=== PATIENT | male | born 1940 | race Caucasian/White ===

== ENCOUNTER 2024-11-22 12:43 | Outpatient (CLI) | payer MEDICARE, BC, SELFPAY ==
--- NOTE | 2024-11-22 13:00 | CRLHL7_ITS ---
For Patients: As a result of the Century Cures Act, medical imaging exams and procedure reports are released immediately into your electronic medical record. You may view this report before your referring provider. If you have questions, please contact your health care provider. INDICATION: Hydrocephalus TECHNIQUE: Noncontrast Sagittal T1,Axial FSE T2, Flair, DWI images submitted. Compared to prior study from October 21, 2024 FINDINGS: Moderate cerebral atrophy. There is mild prominence of the lateral and 3rd ventricles with evidence of hyperdynamic flow through the cerebral aqueduct. The 4th ventricle appears within normal limits. The sulci and gyri are of normal size, shape and contour for age and degree of atrophy. Midline structures are centrally located. No convincing evidence of suspicious intra- or extra-axial fluid collections. [id number] patchy regions of increased T2 signal within the periventricular and subcortical white matter of both cerebral hemispheres. No regions of restricted diffusion. IMPRESSION: 1. No radiographic evidence of acute intracranial abnormalities. 2. Moderate cerebral atrophy with mild prominence of the lateral and 3rd ventricles. 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 3. [id number] supratentorial white matter changes that are non-specific, but statistically most likely related to chronic small vessel ischemic disease. Dictated by Pipe Norwood MD @ 11/22/2024 5:21:48 PM (Electronically Signed)
--- OUTSIDE RECORDS SUMMARY | 2024-11-23 00:52 | XMS_ITS | Encounter Summary ---
Author Organization [facility] Address [address] [place] [address] Care Team Providers Care Launchman Name Role Phone Unavailable Primary Care Provider Unavailabl e Reason for Visit * Reason Comments Med Refill Encounter Details Date Type Department Care Team (Late st Contact Info) Description 11/14/2024 Refill [facility] [id number] [place] [id number] Mikayla Will, P.A.-C. [address] [place] [phone] Med Refill Social History Tobacco Use Types Packs/Day Years Used Date Smoking Tobacco: Unknown Sex and Gender Information Value Date Recorded Sex Assigned at Not on file Legal Sex Male 12:07 PM CDT Gender Identity Not on file Sexual Orientation Not on file documented as of this encounter Plan of Treatment Not on file documented as of this encounter Visit Diagnoses Not on filedocumented in this encounter
--- OUTSIDE RECORDS SUMMARY | 2024-11-23 00:52 | XMS_ITS | Clinical Summary ---
Author Organization [facility] Address [address] [place] [address] Care Team Providers Care Industrial Engineering Intern Name Role Phone César Herring MD Primary Care Provider Unavailabl e Source Comments You are receiving this document as you are listed as the primary care provider,follow-up provider, or the patient has been referred to you for consultation.This is in compliance with the Medicare and[facility] EHR Incentive Program,which states Providers who transition their patient to another setting of careor provider of care or refers their patient to another provider of care shouldprovide summary care record for each transition of care or referral. Ascenz Allergies Active Allergy Reactions Criticality Noted Date Comments Other 12/17/2006 PN: LW Other1: -NKA LW Other2: -NKA Review Contrast Media 12/17/2006 PN: LW CM1: >>> NO CONTRAST ADVERSE REACTION <<< Reaction : Review Food Intolerance 12/17/2006 PN: LW FI1: NKA LW FI2: NKA Medications aspirin 81 MG tablet Take 1 tablet by mouth daily (every 24 hours). LW Addl Instr:Resume after Lovenox complete per preop call- pt. takes baby ASA every other day 7 Active fexofenadine (AKA TRISH) 180 MG tablet Take 1 tablet by mouth daily (every 24 hours). LW Addl Instr:per preop & preop phone call. Indicated for: Allergies 90 3 7 Active DRUG NOT IN COMPUTER LW Comment:zinc 15mg tab daily prn LW Addl Instr:per preop & preop phone call. 7 Active Multiple Vitamins-Minera ls (MULTIVITAMIN OR) Take 1 tablet by mouth daily (every 24 hours). LW Addl Instr:per preop & preop phone call. 100 13 7 Active unknown medication Indications: PN: 7 Active ATENolol (AKA TENORMIN) 50 MG tablet Take 1 tablet by mouth daily (every 24 hours). LW Addl Instr:per preop & preop phone call. Indicated for: High Blood Pressure 90 3 7 Active Active Problems No known active problems Social History Tobacco Use Types Packs/Day Years Used Date Smoking Tobacco: Never Smokeless Tobacco: Never Sex and Gender Information Value Date Recorded Sex Assigned at Not on file Legal Sex Male 11:21 PM CDT Gender Identity Not on file Sexual Orientation Not on file Last Filed Vital Signs Vital Sign Reading Time Taken Comments Blood Pressure 125/76 12/19/2006 7:00 AM CDT C: Dynamap Pulse 80 12/19/2006 9:12 AM CDT Temperature 36.6 C (97.9 F) 12/19/2006 7:00 AM CDT ORAL C: 97.9 F Respiratory Rate 16 12/19/2006 9:12 AM CDT Oxygen Saturation 95% 12/19/2006 9:1 2 AM CDT Inhaled Oxygen Concentration - - Weight 124.7 kg (275 lb) 08/24/2020 9:2 8 AM CDT Height 175.3 cm (5' 9) 08/24/2020 9:28 AM CDT Body Mass Index 40.61 08/24/2020 9:28 AM CDT Plan of Treatment Health Maintenance Due Date Last Done Comments Medicare Annual Wellness Visit 1940 Zoster/Shingles Vaccine (1 of 2) 1992 DTaP/Tdap/Td Vaccine (1 - Tdap) 04/18/2009 04/17/2009 RSV Vaccine (1 - 1-dose 75+ series) 2017 COVID-19 Vaccine (3 - season) 2024 08/11/2020, 07/21/2020 Influenza Vaccine (Season Ended) 2025 03/08/2020, 04/02/2019, 04/03/2018, Additional history exists Pneumococcal Vaccine 50+ Yrs Completed 11/10/2014, 05/05/2011 HepA Vaccine Aged Out No longer eligi ble based on patient's age to complete this topic HepB Vaccine Aged Out No longer eligi ble based on patient's age to complete this topic Hib Vaccine Aged Out No longer eligi ble based on patient's age to complete this topic IPV (Polio) Vaccine Aged Out No longe r eligible based on patient's age to complete this topic MCV4 Vaccine Aged Out No longer eligi ble based on patient's age to complete this topic Meningococcal B Vaccine Aged Out No l onger eligible based on patient's age to complete this topic Insurance MEDICARE MANAGED CARE [facility] Care Teams Industrial Engineering Intern Relationship Specialty Start Date End Date César Herring MD [address] [place] [address] [place] [id number] PCP - General 09/03/10
--- OUTSIDE RECORDS SUMMARY | 2024-11-23 00:52 | XMS_ITS | Clinical Summary ---
Author Organization [facility] Address [address] [place] [id number] Care Team Providers Care Cellulose Insulation Helper Name Role Phone Amos Tineo MD Primary Care Provider Allergies Active Allergy Reactions Criticality Noted Date Comments Bupropion Other - Describe In Comment Field Medications MISCELLANEOUS MEDICAL SUPPLY (GRADUATED COMPRESSION STOCKINGS)Indica tions:Venous stasis ulcer, right For personal use. Length: calf Strength: 20-30 mmHg Circumference in cm: please measure. 1 Packet 0 02/14/20 16 Active WalkerIndication s:Generalized arthritis Rolling Walker for home use. 4-wheeled walker. 1 Device 05/05/20 17 Active aspirin (ECOTRIN) 81 mg enteric coated tabletIndication s:myocardial infarction prevention,preve ntion of transient ischemic attack Take 81 mg by mouth once daily with a meal. Active amoxicillin (AMOXIL) 500 mg capsule TAKE 4 CAPSULES BY MOUTH 1 HOUR BEFORE APPOINTMENT 04/14/20 22 Active acetaminophen (TYLENOL EXTRA STRGTH) 500 mg tabletIndication s:pain Take 500-1,000 mg by mouth every 6 hours if needed. Max acetaminophen dose: 4000mg in 24 hrs. Active finasteride (PROSCAR) 5 mg tabletIndication s:benign prostatic hyperplasia with lower urinary tract sx Take 1 Tablet (5 mg) by mouth once daily in the morning. 90 Tablet 3 05/11/20 24 Active magnesium oxide 400 mg magnesium capsuleIndicatio ns:hypomagnesemi a Take 400 mg by mouth once daily. Take with meal May decrease to once a day if not tolerating 90 Capsule 05/11/20 24 Active fluticasone (50 mcg per actuation) nasal solution (FLONASE)Indicat ions:allergic conjunctivitis,a llergic rhinitis Inhale 2 Sprays in both nostrils once daily. 32 g 05/11/20 24 Active pantoprazole (PROTONIX) 40 mg delayed-release tabletIndication s:gastroesophage al reflux disease Take 1 Tablet (40 mg) by mouth once daily. 90 Tablet 05/11/20 24 Active pravastatin (PRAVACHOL) 80 mg tabletIndication s:hyperlipidemia Take 1 Tablet (80 mg) by mouth at bedtime. 90 Tablet 05/11/20 24 Active tamsulosin 0.4 mg capsuleIndicatio ns:benign prostatic hyperplasia with lower urinary tract sx Take 1 Capsule (0.4 mg) by mouth once daily after a meal. 90 Capsule 3 05/11/20 24 Active gabapentin 300 mg capsuleIndicatio ns:neuropathic pain Take 1 capsule every morning and at noon and 2 capsules in the evening. Active amLODIPine 10 mg tabletIndication s:Essential hypertension Take 1 Tablet (10 mg) by mouth once daily. 30 Tablet 08/24/19 25 Active BIPAPIndications :Obstructive sleep apnea Replacement bPAP machine for home use at pressure: I: 14 E: 10 cmw , Heated humidifier x 1 q 5 yr, Humidifier chamber x 1 q 6 mo, Full face mask x1 q 3mos, with cushion x 2 q mo, standard tubing x 1 q 3 mo, Headgear x 1 q 6 mo, Filters: Disposable x 2 q mo non-disposable filters x1 q 6mo, Length of Need: 99 months, Frequency of use: Daily 1 Each 10/20/19 25 Active allopurinoL 300 mg tabletIndication s:prevention of acute gout attack Take 0.5 Tablets (150 mg) by mouth two times daily. 90 Tablet 1 11/17/19 25 Active allopurinoL (ZYLOPRIM) 300 mg tabletIndication s:prevention of acute gout attack Take 0.5 Tablets (150 mg) by mouth two times daily. 90 Tablet 05/11/20 24 025 Discontin ued(Reord er (E-cancel not sent)) Active Problems Problem Noted Date Diagnosed Date Deficit in activities of daily living (ADL) 07/30 Hydrocephalus, unspecified type 06/03/2024 Stage 3b chronic kidney disease 06/03/2024 Sensorineural hearing loss, bilateral 05/16/2024 COVID-19 05/27/2023 Influenza A 05/27/2023 Symptomatic urinary tract infection 05/27/2023 Obesity, morbid 09/04/2021 Depression, recurrent 08/02/2021 Obstructive sleep apnea 09/27/2019 Carpal tunnel syndrome of right wrist 08/09/2019 Numbness and tingling in right hand 08/09/2019 BPH with urinary obstruction 08/25/2017 Weakness 08/24/2017 Fall, accidental 08/24/2017 Bladder infection 08/24/2017 Pain medication agreement 04/12/2014 Overview (04/12/2014): Knee OSTEOARTHRITIS; taking at night, 15 per month. 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 Stent placed. Recommend at least 1 year of plavix; 2+ years if tolerated. Environmental allergies 05/05/2011 Generalized arthritis 11/30/2006 Other and unspecified hyperlipidemia 09/22/2006 Overview (05/05/2011): Last lipids in chart from 06/2010 LDL 80, HDL 38, TG 304. Takes pravachol 40 mg daily Hypertension CKD (chronic kidney disease) stage 3, GFR 30-59 ml/min Resolved Problems Problem Noted Date Diagnosed Date Resolved Date Choledocholithiasis 07/03/2014 07/03/19 15 Cholecystitis, acute with cholelithiasis 07/03/2014 08/24/2017 Chest pain, unspecified 05/05/201107/2014 Encounters Date Type Department Care Team Description 11/21/2024 Telephone [facility] [address] [place] [address] Amos Tineo MD FYI (Recent fall) 11/14/2024 Refill [facility] [address] [place] [address] Amos Tineo MD Refill Request (Allopurinol) 11/02/2024 Telephone [facility] [address] [place] [address] Amos Tineo MD Form 10/21/2024 8:48 AM CDT - 10/21/2024 11:59 PM CDT Hospital Encounter [facility] [address] [place] [address] Amos Tineo MD Acute nonintractable headache, unspecified headache type 10/21/2024 Travel 10/20/2024 Travel 10/19/2024 10:45 AM CDT Telemedicine [facility] [address] [place] [phone] Cat Cartwright, I&C TECH Telehealth 10/19/[address] [address] Amos Tineo MD Lab (Verbal) 10/14/2024 Travel 10/11/2024 3:10 PM CDT Office Visit [address] [address] Amos Tineo MD Concerns 10/11/2024 Travel 10/09/2024 Travel 10/07/[address] [address] Amos Tineo MD Form (physician order) 10/07/[address] [address] Amos Tineo MD Form (home health certification and plan of care) 09/30/[address] [address] Amos Tineo MD Home Care (following home care ) 09/20/2024 Lab Requisition [facility] [address] [place] [address] Tanja Mckeon MD from Last 3 Months Immunizations Immunization Administration Dates Next Due Amb Influenza, ccIIV3 (Age > =18 Years) Preserve Free (Flu Clinic Only) 03/10/2024,03/26/2023 COVID-19 VACCINE SPIKEVAX (M ODERNA 50MCG/0.5ML) 12YO+ PFS 05/11/2024 COVID-19 vaccine (Pfizer-Bio NTech 30mcg/0.3mL) PF, MDV 04/06/2021,08/11/2020,07/21/2020 Influenza, High-dose Inactivated 024,04/02/2019,04/03/2018,03/21,04/09/2016,03/26/2015,02/21/2014 Influenza, High-dose Quadriv alent Inactivated 03/16/2023,03/14/2021,03/08/2020 Influenza, IIV3 (Age 6-35 mos) 03/15/2013,2010 Influenza, IIV3 (Age >=3 years) 03/15/20 13,03/16/2012,03/06/2011,03/12,03/01/2009,04/13/2008,03/31/2007 Influenza, Inactivated AIIV4 (Age 65+ Years) Preserv Free 03/12/2022 Pneumococcal Conj 20-valent (Prevnar 20) 03/24/2023 Pneumococcal Poly,23-Valent (Pneumovax) 05/05/2011 Pneumococcal conj 13-Valent (Prevnar 13) 11/10/2014 RSV, Recombinant ADJ Reconst ituted (Arexvy 120MCG/0.5mL) 03/31/2023 Td, Preservative Free (age >= 7 Years) 9 Tdap 03/31/2023 Family History Medical History Relation Name Comments Hyperlipidemia Mother Hypertension Mother Hypertension Sister 3 Relation Name Status Comments Daughter Negrita Alive cat allergy Father (Age 66) Car accide nt Mother (Age 87) Alzheimers , colilits Sister 1 Alive Sister 2 Alive hypertension, d epression Sister 3 Son Zachariah Alive hyperlipidemia Social History Tobacco Use Types Packs/Day Years Used Date Smoking Tobacco: Never Passive Smoke Exposure: Past Smokeless Tobacco: Never Tobacco Cessation:Counseling Given: Not Answered Alcohol Use Standard Drinks/Week Comments Not Currently 0 (1 standard drink = 0.6 oz pur e alcohol) PHQ-2 Answer Date Recorded PHQ-2 TOTAL SCORE 0 05/11/2024 Social Connections Answer Date Recorded Do you often feel lonely or isolated from those around you? 0 08/16/2024 Financial Resource Strain Answer Date R ecorded Difficulty of Paying Living Expenses 3 06/02/2024 Difficulty of Paying Living Expenses Not on file 06/02/2024 Food Insecurity Answer Date Recorded Do you worry your food will run out before you are able to buy more? 1 08/16/2024 Transportation Needs Answer Date Record ed Does lack of transportation keep you from medica l appointments? 1 08/16/2024 Does lack of transportation keep you from work, meetings or getting things that you need? 1 08/16/2024 Housing Stability Answer Date Recorded What is your housing situation today? 1 08/16/2024 Interpersonal Safety Answer Date Record ed Are you being hit, kicked, p ushed or yelled at (see row info)? No 08/16/2024 Interpersonal Safety Abuse 12 - 18 Not on file 08/16/2024 Interpersonal Safety Ambulatory Vulnerability No t on file 08/16/2024 Utilities Answer Date Recorded Do you have trouble paying f or utilities (for example, heat, electricity, water, phone)? 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 Gender Identity Not on file Sexual Orientation Not on file Occupation Industry Job Start Date Job End Date Retired Not on file Not on file Not on file Obstetrics History Last Filed Vital Signs Vital Sign Reading Time Taken Comments Blood Pressure 122/60 10/11/2024 3:18 PM CDT Pulse 74 10/11/2024 3:18 PM CDT Temperature 37.5 C (99.5 F) 08/22/2024 7:07 AM CDT Respiratory Rate 14 08/22/2024 7:07 AM CDT Oxygen Saturation 94% 10/11/2024 3:18 PM CDT Inhaled Oxygen Concentration - - Weight 114.8 kg (253 lb) 10/11/2024 3:18 PM CDT Height 175.3 cm (5' 9) 10/11/2024 3:18 PM CDT Body Mass Index 37.36 10/11/2024 3:18 PM CDT Plan of Treatment Upcoming Encounters Date Type Department Care Team (Late st Contact Info) Description 01/03/2025 1:00 PM CDT Office Visit [facility] [address] [place] [phone] Prince Winston [facility] [address] [facility] [address] [place] [address] 01/31/2025 10:15 AM CDT Ancillary Procedure [facility] [address] [place] [address] Health Maintenance Due Date Last Done Comments Zoster (shingles) series for age 50+ (1 of 2) 1992 COVID-19 vaccine series ( season) 2024 05/11/2024, 03/24/2023, 02/11/2022, Additional history exists Depression screening for age 12+ 05/11/2025 05/11/2024, 05/08/2023, 05/06/2022, Additional history exists Medicare Wellness for age 65+ 05/12/2025 05/11/2024, 05/08/2023, 05/06/2022, Additional history exists BMI (ht and wt on same day) for age 18+ 10/11/2025 10/11/2024, 08/08/2024, 06/03/2024, Additional history exists Tetanus booster 03/31/2033 03/31/2023, 04/17/2009 Pneumococcal series for age 50+ Completed 03/24/2023, 11/10/2014, 05/05/2011 RSV vaccine for adults or Completed 03/31/2023 Tdap Completed 03/31/2023 Influenza Vaccine Completed 03/10/2024, , 03/26/2023, Additional history exists Hepatitis B series for 19+ Aged Out N o longer eligible based on patient's age to complete this topic Goals Goal Patient Goal Type Associated Problems Recent Progress Patient-Stated? Author BLOOD PRESSURE - Maintains BP less than 140/90 Blood Pressure No Amos Tineo MD Medical Devices Implanted Type Area License Examiner Device Identifier Shelf Expiration Date Model / Serial / Lot [id number] - [id number] Implanted:Qty: 1 on 03/07/2014 by Nirmal Garnett MD at [facility] Total Joint Left: Knee 11/18/2018 [id number] Cement Simplex P#[id number] * - [id number] Implanted:Qty: 2 on 03/07/2014 by Nirmal Garnett MD at [facility] Left: Knee D-[employer] 12/18/2014 [id number] / / [id number] - [id number] Implanted:Qty: 1 on 03/07/2014 by Nirmal Garnett MD at [facility] Left: Knee DEPUY 09/29/2017 [id number] Description:Patella Medializ ed Dome [id number] - [id number] Implanted:Qty: 1 on 03/07/2014 by Nirmal Garnett MD at [facility] Left: Knee DEPUY 10/31/2023 [id number] Description:Femoral Posterio r Stabilized [id number] - [id number] Implanted:Qty: 1 on 03/07/2014 by Nirmal Garnett MD at [facility] Left: Knee DEPUY 01/30/2023 [id number] Description:Tibial Base Fixe d Bearing Procedures Procedure Name Priority Date/Time Associated Diagnosis Comments CT HEAD BRAIN WO Routine 10/21/2024 9:06 AM CDT Acute nonintractable headache, unspecified headache type BASIC METABOLIC PANEL Routine 09/21/2024 6:20 AM CDT Essential (primary) hypertension from Last 3 Months Results * CT HEAD BRAIN WO (10/21/2024 9:06 AM CDT) Anatomical Region Laterality Modality HEAD, BRAIN Computed Tomogra phy 10/21/2024 1:38 PM CDT Impressions 10/21/2024 1:38 PM CDT No acute intracranial abnormality. No significant changes compared to prior study dated 08/11/2024. Please note that all CT scans at this facility use dose modulation, iterative reconstruction, and/or weight-based dosing when appropriate to reduce radiation dose to as low as reasonably achievable. Dictated by Ankit Long MD @ 10/21/2024 1:38:51 PM (Electronically Signed) Narrative 10/21/2024 1:38 PM CDT For Patients: As a result of the Cures Act, medical imaging exams and procedure reports are released immediately into your electronic medical record. You may view this report before your referring provider. If you have questions, please contact your health care provider. INDICATION: Acute nonintractable headache, unspecified headache type; headache, neuro deficit TECHNIQUE: CT of the head without contrast. Coronal and sagittal reformats. Bone and soft tissue algorithms. COMPARISON: CT 08/11/2024 FINDINGS: No acute intracranial hemorrhage or extra-axial collection. No evidence of acute cortical infarction. No mass effect or midline shift. Moderate generalized parenchymal volume loss. Moderate regions of decreased attenuation within the periventricular and subcortical white matter of both cerebral hemispheres most likely reflect chronic microvascular ischemic disease and age related change in this patient. Vascular calcifications within the carotid siphons. Orbital contents are normal. No calvarial fractures. No lytic or sclerotic osseous lesions within the calvarium or skull base. Scalp and other imaged soft tissue structures are normal. Mastoid air cells are clear. Right TMJ degenerative changes. Procedure Note Ankit Long MD - 10/21/2024 For Patients: As a result of the Cures Act, medical imagingexams and procedure reports are released immediately into your electronicmedical record. You may view this report before your referring provider.If you have questions, please contact your health care provider. INDICATION: Acute nonintractable headache, unspecified headache type; headache, neurodeficit TECHNIQUE: CT of the head without contrast. Coronal and sagittal reformats. Bone andsoft tissue algorithms. COMPARISON: CT 08/11/2024 FINDINGS: No acute intracranial hemorrhage or extra-axial collection. No evidence ofacute cortical infarction. No mass effect or midline shift. Moderategeneralized parenchymal volume loss. Moderate regions of decreasedattenuation within the periventricular and subcortical white matter ofboth cerebral hemispheres most likely reflect chronic microvascularischemic disease and age related change in this patient. Vascularcalcifications within the carotid siphons. Orbital contents are normal.No calvarial fractures. No lytic or sclerotic osseous lesions within thecalvarium or skull base. Scalp and other imaged soft tissue structures arenormal. Mastoid air cells are clear. Right TMJ degenerative changes. IMPRESSION: No acute intracranial abnormality. No significant changes compared p & s surgery center study dated 08/11/2024. Please note that all CT scans at this facility use dose modulation,iterative reconstruction, and/or weight-based dosing when appropriate toreduce radiation dose to as low as reasonably achievable. Dictated by Ankit Long MD @ 10/21/2024 1:38:51 PM (Electronically Signed) us Amos Tineo MD CT Final Resul t * (ABNORMAL) BASIC METABOLIC PANEL (09/21/2024 6:20 AM CDT) SODIUM 142 136 - 145 mmol/L 09/21/2024 6:57 AM [facility] POTASSIUM 4.7 3.5 - 5.1 mmol/L 09/21/2024 6:57 AM [facility] CHLORIDE 106 98 - 107 mmol/L 09/21/2024 6:57 AM [facility] CO2,TOTAL 26 22 - 29 mmol/L 09/21/2024 6:57 AM [facility] ANION GAP 10 5 - 18 09/21/2024 6:57 AM [facility] GLUCOSE 90 70 - 99 mg/dL 09/21/2024 6:57 AM [facility] CALCIUM 9.3 8.8 - 10.4 mg/dL 09/21/2024 6:57 AM [facility] Comment: Reference ranges for this test were updated on 04/05/2024 to reflect our healthy population more accurately. Reference range changes are not retroactively applied to results, but previous results using the same methodology can be interpreted in the context of the new reference range. BUN 24(H) 8 - 23 mg/dL 09/21/2024 6:57 AM [facility] CREATININE 1.89(H) 0.70 - 1.20 mg/dL 09/21/2024 6:57 AM [facility] BUN/CREAT RATIO 13 10 - 20 6:57 AM [facility] eGFR 35(L) >90 mL/min/1. 73m2 09/21/2024 6:57 AM [facility] Comment:As of 2021, eG FR is calculated by the CKD-EPI creatinine equation without race adjustment. eGFR can be influenced by muscle mass, exercise, and diet. The reported eGFR is an estimation only and is only applicable if the renal function is stable. 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 Expl anation POLST 06/19/2023 Healthcare Directive 07/23/2011 12:00 AM A DVANCE DIRECTIVE * DNR (Latest Code Status on File) Date Activated Date Inactivated Comments 08/16/2024 3:44 PM 08/22/2024 1:25 PM Question Answer Comments Code Status Discussion: Reviewed Preferences * DNR Date Activated Date Inactivated Comments 05/27/2023 4:13 PM 05/29/2023 5:18 PM Question Answer Comments Code Status Discussion: Reviewed Preferences * Full Code Date Activated Date Inactivated Comments 05/27/2023 2:43 PM 05/27/2023 4:13 PM Question Answer Comments Code Status Discussion: Reviewed Preferences * Full Code Date Activated Date Inactivated Comments 08/24/2017 7:21 PM 08/26/2017 2:17 PM * Full Code Date Activated Date Inactivated Comments 07/03/2014 7:50 PM 07/10/2014 3:12 PM Care Teams Cellulose Insulation Helper Relationship Specialty Start Date End Date Amos Tineo MD [address] [place] [address] PCP - General Family Practice 08/11/14
--- OUTSIDE RECORDS SUMMARY | 2024-11-23 00:52 | XMS_ITS | Encounter Summary ---
Author Organization [facility] Address [address] [place] [address] Care Team Providers Care Caramel Cutter Hand Name Role Phone Unavailable Primary Care Provider Unavailabl e Encounter Details Date Type Department Care Team (Late st Contact Info) Description 11/14/2024 Orders Only [facility] [address] [place] [address] Mikayla Will, P.A.-C. [address] [place] [phone] Social History Tobacco Use Types Packs/Day Years [...]
--- OUTSIDE RECORDS SUMMARY | 2024-11-23 00:52 | XMS_ITS | Clinical Summary ---
Author Organization [facility] Address [address] [place] [address] Care Team Providers Care Administrative Liaison Name Role Phone Unavailable Primary Care Provider Unavailabl e Source Comments Patient records contain information from all sites at [facility]. For routine questions regarding patient records, call [phone] during business hours, M-F 8:00 AM - 5:00 PM Central Time. Record requests for emergency care only can be directed to [phone] at any time.[facility] Allergies Active Allergy Reactions Criticality Noted Date Comments Bupropion Other (see comments) 08/24/2024 unknown Medications acetaminophen (TylenoL) 500 mg tablet Take 500-1,000 mg by mouth every 6 (six) hours as needed for pain. 5 Active amoxicillin (AmoxiL) 500 mg capsule Take 2,000 mg by mouth as directed. Take 1 hour prior to procedure 5 Active allopurinoL (Zyloprim) 300 mg tablet Take 0.5 tablets (150 mg total) by mouth daily. 15 tablet 5 Active amLODIPine (Norvasc) 10 mg tablet Take 1 tablet (10 mg total) by mouth daily. 30 tablet 5 Active aspirin [address] tablet Take 1 tablet (81 mg total) by mouth daily. 30 tablet 5 Active fluticasone propionate (Flonase) 50 mcg/actuation nasal spray Administer 2 sprays into each nostril daily. 16 g 5 Active gabapentin (Neurontin) 300 mg capsule Take 2 capsules (600 mg total) by mouth at bedtime. 60 capsule 5 Active gabapentin (Neurontin) 300 mg capsule Take 1 capsule (300 mg total) by mouth 2 (two) times a day. 60 capsule 5 Active lisinopriL 10 mg tablet Take 1 tablet (10 mg total) by mouth daily. 30 tablet 5 Active pravastatin (PravachoL) 80 mg tablet Take 1 tablet (80 mg total) by mouth at bedtime. 30 tablet 5 Active finasteride (Proscar) 5 mg tablet Take 1 tablet (5 mg total) by mouth daily. 30 tablet 5 10/31/19 25 magnesium oxide (Mag-Ox) 400 mg (241.3 mg magnesium) tablet Take 1 tablet (400 mg total) by mouth daily before morning meal. 30 tablet 5 10/31/19 25 pantoprazole (Protonix) 40 mg EC tablet Take 1 tablet (40 mg total) by mouth daily before morning meal. 30 tablet 5 10/31/19 25 tamsulosin (Flomax) 0.4 mg 24 hr capsule Take 1 capsule (0.4 mg total) by mouth daily. 30 capsule 5 10/31/19 25 Active Problems Problem Noted Date Diagnosed Date Hydrocephalus Normal Pressure 09/07/2024 Overview (09/07/2024): Details not available. 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 Assessment & Plan (09/30/2024 6:56 PM CDT): He should follow-up with Neurology. This referral we will need to be made by his [facility] primary provider Assessment & Plan (09/07/2024 10:17 PM CDT): Continue outpatient management. History Of Falling 09/06/2024 Overview (09/07/2024): Multiple falls prior to admission July 2024. Evaluation was unremarkable. Assessment & Plan (09/30/2024 6:52 PM CDT): He has gotten stronger. He will continue with home health PT OT. He will be moving into an assisted living facility Assessment & Plan (09/07/2024 10:17 PM CDT): No Falls at facility. Multiple falls prior to hospitalization. Weakness General 08/25/2024 Overview (09/13/2024): This is multifactorial and related to advanced age, deconditioning, neurologic issues, possible medication effect. Family concerned it maybe related to his fluoxetine-this has been discontinued Assessment & Plan (09/30/2024 6:52 PM CDT): He has gotten stronger. He will continue home health PT OT Assessment & Plan (09/25/2024 8:31 PM CDT): He is getting stronger. He is on his way with therapy. Assessment & Plan (09/07/2024 10:17 PM CDT): This is expected to improve with therapies. Family suspects fluoxetine may have caused increased weakness. This has been discontinued. 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 Blood pressures have improved. Continue amlodipine 10 mg daily Continue lisinopril 10 mg daily Assessment & Plan (09/25/2024 8:30 PM CDT): Blood pressures have been a bit high. I am going to start lisinopril 10 mg daily. I will plan to follow-up with him to recheck blood pressures. Assessment & Plan (09/07/2024 10:17 PM CDT): Blood pressures are reviewed and are variable ranging from 1 teens to 140s. Continue amlodipine. Chronic Kidney Disease (CKD) , Stage 3a Glomerular Filtration Rate (GFR) 45 To 59 08/25/2024 Overview (09/30/2024): Most recent creatinine 1.89, GFR 35 on 09/21/2024 Assessment & Plan (09/25/2024 8:30 PM CDT): Recheck basic metabolic panel 09/21/2024 Assessment & Plan (09/07/2024 10:17 PM CDT): Most recent creatinine 1.86. GFR not available. Benign Prostatic Hyperplasia Hypertrophy With Ob struction 08/25/2024 Overview (09/13/2024): Managed on tamsulosin and finasteride Assessment & Plan (09/30/2024 6:55 PM CDT): Continue tamsulosin 0.4 mg daily Continue finasteride 5 mg daily Assessment & Plan (09/07/2024 10:17 PM CDT): Tamsulosin started May 2024 which may be temporarily related to increase in weakness. Obstructive Sleep Apnea Adult 08/25/2024 Overview (09/07/2024): Compliant with and benefits from CPAP Assessment & Plan (09/30/2024 6:55 PM CDT): Continue CPAP Assessment & Plan (09/07/2024 10:17 PM CDT): Continue CPAP at home settings. Morbid Obesity 08/25/2024 Overview (09/07/2024): BMI is 37.8 Assessment & Plan (09/07/2024 10:17 PM CDT): This is clinically significant due to increased nursing cares, use of resources, and specialty equipment. Coronary Artery Disease Without Angina Pectoris 08/25/2024 Overview (09/13/2024): History of PCI with [facility] Assessment & Plan (09/30/2024 6:53 PM CDT): Continue aspirin 81 mg daily Continue pravastatin 80 mg daily Assessment & Plan (09/07/2024 10:17 PM CDT): Continue to address modifiable risk factors. Gout 08/25/2024 Overview (09/13/2024): Managed on allopurinol Assessment & Plan (09/30/2024 6:55 PM CDT): Continue allopurinol 150 mg daily Assessment & Plan (09/07/2024 10:17 PM CDT): Continue allopurinol. Hyperlipidemia 08/25/2024 Overview (09/07/2024): On pravastatin in the setting of coronary artery disease. Assessment & Plan (09/07/2024 10:17 PM CDT): Continue pravastatin. Rhinitis Allergic 08/25/2024 Overview (08/25/2024): Continue Flonase Neuropathy Peripheral 08/25/2024 Overview (08/25/2024): Managed with gabapentin and acetaminophen Assessment & Plan (09/30/2024 6:54 PM CDT): Continue gabapentin 300 mg twice daily and 600 mg at bedtime Assessment & Plan (09/07/2024 10:17 PM CDT): Continue gabapentin and acetaminophen Gastroesophageal Reflux Disease Without Esophagi tis 08/25/2024 Overview (09/07/2024): Managed with pantoprazole. Assessment & Plan (09/30/2024 6:55 PM CDT): Continue pantoprazole 40 mg daily Assessment & Plan (09/07/2024 10:17 PM CDT): Continue pantoprazole. Hypomagnesemia 08/25/2024 Assessment & Plan (09/30/2024 6:54 PM CDT): Continue magnesium supplement Assessment & Plan (09/07/2024 10:17 PM CDT): Continue magnesium supplement. Encounters Date Type Department Care Team Description 11/14/2024 Orders Only [facility] [place] [phone] [phone] Mikayla Will, P.A.-C. 11/14/2024 Refill [facility] [place] [phone] [phone] Mikayla Will P.A.-C. Med Refill 09/30/2024 10:00 AM CDT External Outreach [facility] [place] [phone] [phone] Mikayla Will, P.A.-CBeto Weakness General (Primary Dx); History Of Falling; Coronary Artery Disease Without Angina Pectoris; Hypertensive Heart And Chronic Kidney Disease Without Heart Failure With Stage 1 To 4 Chronic Kidney Disease Or Unspecified Chronic Kidney Disease; Chronic Kidney Disease (CKD), Stage 3a Glomerular Filtration Rate (GFR) 45 To 59 (HCC); Neuropathy Peripheral; Hypomagnesemia; Obstructive Sleep Apnea Adult; Morbid Obesity (HCC); Gastroesophageal Reflux Disease Without Esophagitis; Benign Prostatic Hyperplasia Hypertrophy With Obstruction; Gout; Hydrocephalus Normal Pressure (HCC) 09/14/2024 10:00 AM CDT [facility] [place] [phone] [phone] Neelam Cabello MPAS, P.A.-C., Mikayla Oliver P.A.-CBeto Weakness General (Primary Dx); History Of Falling; Coronary Artery Disease Without Angina Pectoris; Hypertensive Heart And Chronic Kidney Disease Without Heart Failure With Stage 1 To 4 Chronic Kidney Disease Or Unspecified Chronic Kidney Disease; Chronic Kidney Disease (CKD), Stage 3a Glomerular Filtration Rate (GFR) 45 To 59 (HCC); Neuropathy Peripheral 09/07/2024 10:00 AM CDT [facility] [place] [phone] [phone] Neelam Cabello MPAS, P.A.-CBeto, Mikayla Oliver P.A.-C. Weakness General (Primary Dx); History Of Falling; Coronary Artery Disease Without Angina Pectoris; Hypertensive Heart And Chronic Kidney Disease Without Heart Failure With Stage 1 To 4 Chronic Kidney Disease Or Unspecified Chronic Kidney Disease; Chronic Kidney Disease (CKD), Stage 3a Glomerular Filtration Rate (GFR) 45 To 59 (HCC); Neuropathy Peripheral; Hypomagnesemia; Obstructive Sleep Apnea Adult; Morbid Obesity (HCC); Gastroesophageal Reflux Disease Without Esophagitis; Benign Prostatic Hyperplasia Hypertrophy With Obstruction; Gout 08/29/2024 10:00 AM CDT [facility] [place] [phone] [phone] Neelam Cabello MPAS, P.A.-CBeto, Tanja Hoover M.D. Weakness General (Primary Dx); History Of Falling; Chronic Kidney Disease (CKD), Stage 3a Glomerular Filtration Rate (GFR) 45 To 59 (HCC); Coronary Artery Disease Without Angina Pectoris; Gastroesophageal Reflux Disease Without Esophagitis; Gout; Hyperlipidemia; Hypertensive Heart And Chronic Kidney Disease Without Heart Failure With Stage 1 To 4 Chronic Kidney Disease Or Unspecified Chronic Kidney Disease; Hydrocephalus Normal Pressure (HCC); Hypomagnesemia; Benign Prostatic Hyperplasia Hypertrophy With Obstruction; Morbid Obesity (HCC); Neuropathy Peripheral; Obstructive Sleep Apnea Adult 08/25/2024 10:00 AM CDT [facility] [place] [phone] [phone] Neelam Cabello MPAS, P.A.-CBeto, P.Kulwant Woodson (Primary Dx); Hypertension Essential Primary; Chronic Kidney Disease (CKD), Stage 3a Glomerular Filtration Rate (GFR) 45 To 59 (HCC); Benign Prostatic Hyperplasia Hypertrophy With Obstruction; Obstructive Sleep Apnea Adult; Morbid Obesity (HCC); Coronary Artery Disease Without Angina Pectoris; Gout; Hyperlipidemia; Hypertensive Heart Disease Without Heart Failure; Rhinitis Allergic; Neuropathy Peripheral; Gastroesophageal Reflux Disease Without Esophagitis; Hypomagnesemia from Last 3 Months Social History Tobacco Use Types Packs/Day Years Used Date Smoking Tobacco: Unknown Tobacco Cessation:Counseling Given: Not Answered Sex and Gender Information Value Date Recorded Sex Assigned at Not on file Legal Sex Male 12:07 PM CDT Gender Identity Not on file Sexual Orientation Not on file Last Filed Vital Signs Vital Sign Reading Time Taken Comments Blood Pressure 112/64 09/30/2024 8:14 AM CDT Pulse 66 09/30/2024 8:14 AM CDT Temperature 36.7 C (98 F) 09/30/2024 8:14 AM CDT Respiratory Rate 18 09/30/2024 8:14 AM CDT Oxygen Saturation 94% 09/30/2024 8:14 AM CDT Inhaled Oxygen Concentration - - Weight 119 kg (262 lb) 09/30/2024 8:14 AM CDT Height 175.3 cm (5' 9) 08/29/2024 8:05 AM CDT Body Mass Index 38.69 08/29/2024 8:05 AM CDT Plan of Treatment Health Maintenance Due Date Last Done Comments Zoster Vaccines (1 of 2) 1992 Depression Screening (Annual PHQ-2) 06/01/2024 Fall Risk Screen (Annual) 06/01/2024 COVID-19 Vaccine ( season) 2024 05/11/2024, 03/24/2023, 02/11/2022, Additional history exists Office Visit for Blood Pressure Check / Re-check 09/30/2025 09/30/2024 DTaP,Tdap,and Td Vaccines (2 - Td or Tdap) 03/31/2033 03/31/2023, 04/17/2009 Pneumococcal vaccine (50+ years) Completed 03/24/2023, 11/10/2014, 05/05/2011 RSV vaccine - (32-36 weeks) or 60+ years Completed 03/31/2023 Influenza Vaccine Completed 03/10/2024, , 03/16/2023, Additional history exists IPV Vaccines Aged Out No longer eligi ble based on patient's age to complete this topic Insurance MEDICARE [facility]
== END 2024-11-22 12:44 | disposition home or self-care (01) ==
LOC: MRI 12:48
PROVIDERS: PCP Family Medicine; Visit Provider Family Medicine
DX: G91.9 Hydrocephalus, unspecified (principal)
CPT/HCPCS: 70551